=== PATIENT | female | born 1975 | race Caucasian/White ===

== ENCOUNTER 2016-12-03 11:01 | Day surgery (SDC) | payer BC ==
--- NOTE | 2016-12-02 16:44 | PCM.PREANE ---
Preanesthetic Assessment - ANESTHESIA/TRANSFUSION/FAMILY HX Anesthesia/Transfusion History: Prior Anesthesia Family History of Anesthesia Reaction: No - REVIEW OF SYSTEMS Constitutional: Reports: no symptoms PROTECTION SPECIALIST: Reports: no symptoms Respiratory: Reports: no symptoms Cardiovascular: Reports: no symptoms GI: Reports: no symptoms Other: Reports: none - PHYSICAL ASSESSMENT Height: 5 ft 5 in Weight: 83.915 kg ASA Class: 2 Mental Status: alert & oriented x3 Airway Class: Mallampati = 2 Dentition: Reports: normal dentition Thyro-Mental Finger Breadths: 3 Mouth Opening Finger Breadths: 3 ROM/Head Extension: full Respiratory Status: lungs clear to auscultation bilaterally Cardiovascular Status: regular rate & rhythm, normal S1, S2, no murmur, blood pressure WNL - ALLERGIES Allergies/Adverse Reactions: Allergies Allergy/AdvReac Type Severity Reaction Status Date / Time acetaminophen Allergy Hives Verified 06/03/14 12:33 [From Darvocet-N] ciprofloxacin [From Cipro] Allergy tendon Verified 12/02/16 11:29 symptoms/pain codeine Allergy Nausea and Verified 06/03/14 12:33 Vomiting levofloxacin [From Levaquin] Allergy tendon Verified 12/02/16 11:29 symptoms/pain propoxyphene napsylate Allergy Hives Verified 06/03/14 12:33 [From Darvocet-N] - ANESTHESIA PLAN Free Text/Narrative:: Recent URI that has improved, currently only post-nasal drip Anesthesia Type Planned: general anesthesia - ACKNOWLEDGEMENTS Pt an appropriate candidate for the planned anesthesia: Yes Alternatives and risks of anesthesia discussed w pt/guardian: Yes Pt/Guardian understands and agree with anesthesia plan: Yes PreAnesthesia Questionnaire HEENT History: Reports: None Cardiovascular History: Reports: None Respiratory History: Reports: None Gastrointestinal History: Reports: GERD Genitourinary History: Reports: UTI, recurrent ZONE MANAGER History: Reports: Musculoskeletal History: Reports: None Neurological History: Reports: None Psychiatric History: Reports: None Endocrine/Metabolic History: Reports: Hypothyroidism, Obesity/BMI 30+ Hematologic History: Reports: None Immunologic History: Reports: None Oncologic (Cancer) History: Reports: None Dermatologic History: Reports: None - Infectious Disease History Infectious Disease History: Reports: None - Past Surgical History Head Surgeries/Procedures: Reports: None Female Surgical History: Reports: section, LEEP - SUBSTANCE USE Smoking Status *Q: Never Smoker Recreational Drug Use History: No - HOME MEDS Home Medications: Home Meds Levothyroxine Sodium [Synthroid] 150 mcg PO DAILY 06/03/14 [History] Omeprazole 60 mg PO DAILY 06/03/14 [History] Cholecalciferol (Vitamin D3) [Vitamin D3] 1,000 units PO DAILY 12/02/16 [History ] Cyanocobalamin (Vitamin B-12) [Vitamin B12] 5,000 mcg PO DAILY 12/02/16 [History ] PNV95/Ferrous Fumarate/FA [ Vitamins Tablet] 1 tab PO DAILY 12/02/16 [ History]
[~2016-12-03 11:01] MED LIST: Lactated Ringers 1,000 ML IV SCH; Sodium Chloride 0.9% 10 ML Syringe FLUSH PRN; Sodium Chloride 0.9% 2.5 ML Syringe FLUSH PRN
[2016-12-03] MEDS ORDERED: Lidocaine 2% 5 ML SDV ONE (13:02)
[2016-12-03] MEDS ORDERED: Propofol 200 MG/20 ML SDV ONE (13:02)
[2016-12-03] MEDS ORDERED: Ondansetron 4 MG/2 ML SDV ONE (13:02)
[2016-12-03] MEDS ORDERED: Midazolam 1 MG/ML 2 ML SDV ONE (13:03)
[2016-12-03] MEDS ORDERED: fentaNYL 100 MCG/2 ML SDV ONE ×2 (13:03→13:40)
[2016-12-03] MEDS ORDERED: Ketorolac 30 MG/ML SDV ONE (13:36)
--- NOTE | 2016-12-03 14:03 | PCM.OPNOTE ---
- General Post-Op/Procedure Note Date of Surgery/Procedure: 12/03/16 Operative Procedure(s): Suction D&C Findings: products of conception Pre Op Diagnosis: Missed Post-Op Diagnosis: Same Anesthesia Technique: General LMA Primary Surgeon: Rayne Marquez Fluid Replacement, Intraop: 1,800 EBL in mLs: 50 Condition: Good Free Text/Narrative:: Dictation [id number]
--- NOTE | 2016-12-03 14:05 | PCM.POSTAN ---
POST ANESTHESIA ASSESSMENT - MENTAL STATUS Mental Status: alert, oriented - RESPIRATORY Respiratory Status: respiratory rate WNL, airway patent, O2 saturation stable - CARDIOVASCULAR CV Status: pulse rate WNL, blood pressure stable - GASTROINTESTINAL GI Status: no symptoms - POST OP HYDRATION Hydration Status: adequate & stable
[2016-12-03] MEDS ORDERED: Acetaminophen/oxyCODONE 325-5 MG Tab PO PRN (14:29)
--- NOTE | 2016-12-03 14:57 | PCM48HPAN ---
Post Anesthesia Note - EVALUATION WITHIN 48HRS OF ANESTHETIC Vital Signs in Normal Range: Yes Patient Participated in Evaluation: Yes Respiratory Function Stable: Yes Airway Patent: Yes Cardiovascular Function Stable: Yes Hydration Status Stable: Yes Pain Control Satisfactory: Yes Nausea and Vomiting Control Satisfactory: Yes Mental Status Recovered: Yes
[2016-12-03 16:06] VITALS: BP 122/56
--- NOTE | 2016-12-06 06:30 | OR ---
SURGEON: Rayne Marquez M.D. DATE OF PROCEDURE: 12/03/2016 PREOPERATIVE DIAGNOSIS: Missed . POSTOPERATIVE DIAGNOSIS: Missed . PROCEDURES: Suction dilation and curettage. ESTIMATED BLOOD LOSS: 50 mL. ANESTHESIA: General LMA. FLUIDS: 1800 mL crystalloid. FINDINGS: Approximately 8 cm uterine cavity with products of conception returned. DISPOSITION: The patient to PACU in stable condition. DESCRIPTION OF OPERATION: Meenu is a 41-year-old, G3, P1-0-1-1, who is supposed to be approximately 10 weeks by LMP. However, when seen and evaluated, she was found to have an approximately six week intrauterine gestational sac with no embryo consistent with a blighted ovum. Her quantitative HCG has been followed serially and is following also consistent with a blighted ovum. Therefore, options have been discussed and she would like to proceed with surgical intervention from a suction D and C. Preoperative consent was obtained. The patient taken to the operating room, where she underwent general LMA. She was placed in modified dorsal lithotomy position, prepped and draped in the usual sterile fashion. SCDs to the lower extremities. Bladder was drained. Time-out was performed. Speculum was introduced in the vagina. The posterior lip of cervix was grasped with an Allis clamp. The cervix was gently dilated to 8 mm. An 8 mm curved curette was now introduced in the uterine cavity and suction was applied to empty the uterine cavity off products of conception. Gentle curettage was now performed. I was able to palpate the myometrium. All instruments were removed from vagina. Hemostasis appeared evident. Specimens to Pathology. The patient has tolerated the procedure well. She will go to PACU in a stable condition. Specimens to Pathology. JENI / REJI /[id number]
== END 2016-12-03 16:00 | disposition home or self-care (01) ==
LOC: MW.SDS 11:01
PROVIDERS: ATTEND Obstetrics & Gynecology
PROC: 10D17ZZ Extraction of Products of Conception, Retained, Via Natural or Artificial Opening (ICD-10-PCS; principal; 2016-12-03)
DX: O02.1 Missed abortion (principal); E03.9 Hypothyroidism, unspecified; K21.9 Gastro-esophageal reflux disease without esophagitis; E66.9 Obesity, unspecified; Z86.19 Personal history of other infectious and parasitic diseases; Z87.440 Personal history of urinary (tract) infections; Z79.899 Other long term (current) drug therapy; Z98.890 Other specified postprocedural states; Z88.6 Allergy status to analgesic agent; Z88.1 Allergy status to other antibiotic agents; Z88.5 Allergy status to narcotic agent; Z68.31 Body mass index [BMI] 31.0-31.9, adult
CPT/HCPCS: 36415; 59820; 85027; A9270; J1885; J2250; J2405; J3010; J7120; 01965; 88305; J2704